=== PATIENT | male | born 1940 | race Two or more races ===

== ENCOUNTER 2024-08-14 18:39 | Emergency (ER) | payer OTHER ==
[~2024-08-14] VITALS: Ht 162.6 cm; Wt 81.6 kg
[~2024-08-14 18:39] MED LIST: DUI500 PO; ELIQUIS2.5 MG PO; PERCOCET 5-3251 EACH PO
[2024-08-14] MEDS ORDERED: IRBESARTAN75 MG PO (18:57)
[2024-08-14 19:54] LABS: BASO % 0.6 % (0.1-1.2); EOS # 0.61 (0.04-0.54); HEMATOCRIT 32.1 % (40.1-51.0); HEMOGLOBIN 10.5 g/dL (13.7-17.5); LYMPH # 0.96 (1.18-3.74); MEAN CORPUSCULAR HEMOGLOBIN 31.9 pg (25.6-32.2); MONO # 0.79 (0.24-0.82); NEUT # 6.29 (1.56-6.13); NEUT % 72.1 % (34.0-71.1); PLATELET COUNT 201 K/uL (163-369); RED BLOOD COUNT 3.29 M/uL (4.63-6.08); RED CELL DISTRIBUTION WIDTH 13.1 % (11.6-14.4)
[2024-08-14 20:11] LABS: INR 1.02; PARTIAL THROMBOPLASTIN TIME 29.6 SECONDS (22.0-34.0); PROTHROMBIN TIME 11.1 SECONDS (9.0-11.5)
[2024-08-14 20:16] LABS: ALBUMIN 2.2 gm/dL (3.4-5.0); BILIRUBIN TOTAL 0.87 mg/dL (0.3-1.2); CALCIUM 8.4 mg/dL (8.5-10.1); CREATININE SERUM 0.71 mg/dL (0.70-1.30); GFR 106.48; GLOBULINA 3.8 G/DL (2.4-3.5); POTASSIUM 3.78 mEq/L (3.5-5.1)
[2024-08-14] MEDS ORDERED: LEVALBUTEROL HCL 0.63 MG/3 ML SOLUTION IH ONE (21:12)
[2024-08-14] MEDS ORDERED: FUROsemide 20 MG/2 ML VIAL IV ONE (21:15)
[2024-08-14] MEDS ORDERED: LEVALBUTEROL HCL 1.25 MG/3 ML SOLUTION IH ONE (21:15)
[2024-08-14] MEDS ORDERED: FUROsemide 20 MG/2 ML VIAL ONE (21:33)
[2024-08-14 22:21] LABS: ABG PH 7.483 (7.35-7.45); ABG pCO2 32.6 mmHg (35-45)
[2024-08-14 22:22] LABS: BASE EXCESS 1.2 mmol/l; BICARBONATE 23.9 mmol/l (23-25); SaO2 95.7 %; Tco2 24.9 mmol/l; allen test SATISFACTORY; mode ROOM AIR; o2 21 %; puncture site BRADIAL RIGHT
== END 2024-08-14 22:46 | disposition home or self-care (01) ==
LOC: ER 18:39
PROVIDERS: General Practice
DX: R06.3 Periodic breathing (principal); I10 Essential (primary) hypertension
CPT/HCPCS: 36415; 71045; 82803; 94640; 96365; 99283; J3490

== ENCOUNTER 2024-09-08 13:50 | Inpatient (IN) | payer OTHER ==
[~2024-09-08] VITALS: Ht 167.6 cm; Wt 86.2 kg
[~2024-09-08 13:50] MED LIST changes: +IRBESARTAN75 MG PO
[2024-09-08] MEDS ORDERED: PANTOPRAZOLE SODIUM 40 MG/VIAL VIAL IV ONE ×2 (14:45→23:00)
[2024-09-08] MEDS ORDERED: PIPERACILLIN/TAZOBACTAM SODIUM 3.375 GM VIAL IV ONE ×2 (14:45→15:25)
[2024-09-08] MEDS ORDERED: 0.9 % SODIUM CHLORIDE 1,000 ML IV ONE (14:45)
[2024-09-08] MEDS ORDERED: LIDOCAINE HCL VISCOUS 20MG/ML BLIST 15ML MM ONE (15:47)
[2024-09-08] MEDS ORDERED: BARIUM SULFATE 450 ML ORAL.SUSP PO ONE (16:01)
[2024-09-08 16:28] LABS: BASO % 0.5 % (0.1-1.2); EOS # 0.07 (0.04-0.54); EOS % 0.6 % (0.7-7.0); HEMATOCRIT 35.8 % (40.1-51.0); HEMOGLOBIN 11.5 g/dL (13.7-17.5); LYMPH # 1.03 (1.18-3.74); LYMPH % 9.3 % (19.3-53.1); MEAN CORPUSCULAR HEMOGLOBIN 30.9 pg (25.6-32.2); MONO # 1.01 (0.24-0.82); MONO % 9.1 % (4.7-12.5); NEUT # 8.84 (1.56-6.13); NEUT % 80.2 % (34.0-71.1); PLATELET COUNT 201 K/uL (163-369); RED BLOOD COUNT 3.72 M/uL (4.63-6.08); RED CELL DISTRIBUTION WIDTH 13.3 % (11.6-14.4)
[2024-09-08 16:49] LABS: INR 1.11
[2024-09-08 16:53] LABS: BILIRUBIN TOTAL 0.79 mg/dL (0.3-1.2); CALCIUM 8.9 mg/dL (8.5-10.1); CREATININE SERUM 1.68 mg/dL (0.70-1.30); GFR 39.41; GLOBULINA 3.9 G/DL (2.4-3.5); POTASSIUM 3.89 mEq/L (3.5-5.1); TOTAL PROTEIN 6.9 gm/dL (6.4-8.2)
[2024-09-08 20:19] LABS: URINE APPEARANCE Cloudy; URINE BILIRRUBIN Small (NEGATIVE); URINE BLOOD Negative; URINE COLOR Dark Yellow; URINE GLUCOSE Negative (NEGATIVE); URINE KETONE Trace (NEGATIVE); URINE LEUKOCYTE Negative; URINE NITRATE Negative; URINE PROTEIN Trace (NEGATIVE)
[2024-09-08 20:25] LABS: URINE BACTERIA 417.3 uL (0.0-1933); URINE CAST 2.35 uL (0.0-1.40); URINE EPITHELIAL CELLS 34.3 uL (0.0-38.8); URINE RBC 13.1 uL (0.0-20.8); URINE WBC 14.4 uL (0.0-23.2)
[2024-09-08] MEDS ORDERED: CEFTRIAXONE SODIUM 2,000 MG in 0.9 % SODIUM CHLORIDE 100 ML IV SCH (22:54)
[2024-09-08] MEDS ORDERED: ACETAMINOPHEN 500 MG GEL..CAP PO PRN (23:00)
[2024-09-08] MEDS ORDERED: 0.9 % SODIUM CHLORIDE 1,000 ML IV SCH (23:00)
[2024-09-08] MEDS ORDERED: ONDANSETRON HCL 4 MG in 0.9 % SODIUM CHLORIDE 50 ML IV PRN (23:00)
[2024-09-08] MEDS ORDERED: PANTOPRAZOLE SODIUM 80 MG in 0.9 % SODIUM CHLORIDE 100 ML IV SCH (23:00)
[2024-09-08] MEDS ORDERED: ENALAPRILAT DIHYDRATE 1.25 MG/ML VIAL IV PRN (23:15)
[2024-09-09] VITALS: BP 155/67; O2SAT 97
[2024-09-09] MEDS ORDERED: CEFTRIAXONE SODIUM 2,000 MG VIAL ONE (01:51)
[2024-09-09 06:02] LABS: EOS # 0.19 (0.04-0.54); EOS % 2.1 % (0.7-7.0); HEMATOCRIT 32.6 % (40.1-51.0); HEMOGLOBIN 10.6 g/dL (13.7-17.5); LYMPH # 1.21 (1.18-3.74); LYMPH % 13.4 % (19.3-53.1); MEAN CORPUSCULAR HEMOGLOBIN 31.4 pg (25.6-32.2); MONO # 0.74 (0.24-0.82); MONO % 8.2 % (4.7-12.5); NEUT # 6.77 (1.56-6.13); PLATELET COUNT 183 K/uL (163-369); RED BLOOD COUNT 3.38 M/uL (4.63-6.08); RED CELL DISTRIBUTION WIDTH 13.5 % (11.6-14.4)
[2024-09-09 06:34] LABS: CALCIUM 8.6 mg/dL (8.5-10.1); CREATININE SERUM 1.71 mg/dL (0.70-1.30); GFR 38.61; POTASSIUM 3.66 mEq/L (3.5-5.1)
[2024-09-09 07:14] VITALS: BP 143/83; O2SAT 98
[2024-09-09] MEDS ORDERED: SODIUM CL 0.9% 100 ML IV.SOLN IV ONE (08:47)
[2024-09-09 09:01] VITALS: BP 130/65; O2SAT 95
[2024-09-09 17:16] VITALS: BP 179/52; O2SAT 95
[2024-09-10 01:05] VITALS: BP 138/65; O2SAT 98
[2024-09-10 06:46] LABS: EOS # 0.54 (0.04-0.54); EOS % 7.7 % (0.7-7.0); HEMATOCRIT 31.4 % (40.1-51.0); LYMPH # 1.03 (1.18-3.74); LYMPH % 14.8 % (19.3-53.1); MEAN CORPUSCULAR HEMOGLOBIN 31.3 pg (25.6-32.2); MONO # 0.51 (0.24-0.82); MONO % 7.3 % (4.7-12.5); NEUT # 4.81 (1.56-6.13); NEUT % 69.1 % (34.0-71.1); RED BLOOD COUNT 3.19 M/uL (4.63-6.08); RED CELL DISTRIBUTION WIDTH 13.3 % (11.6-14.4)
[2024-09-10 07:19] LABS: ALBUMIN 2.6 gm/dL (3.4-5.0); BILIRUBIN TOTAL 0.76 mg/dL (0.3-1.2); CALCIUM 8.9 mg/dL (8.5-10.1); CREATININE SERUM 1.01 mg/dL (0.70-1.30); GFR 70.9; GLOBULINA 3.1 G/DL (2.4-3.5); POTASSIUM 4.47 mEq/L (3.5-5.1); TOTAL PROTEIN 5.7 gm/dL (6.4-8.2)
[2024-09-10 07:29] LABS: PLATELET COUNT 82 K/uL (163-369)
[2024-09-10 08:25] VITALS: BP 166/74; O2SAT 95
[2024-09-10] MEDS ORDERED: SODIUM CHLORIDE 0.45 % 1,000 ML IV SCH (11:15)
[2024-09-10 15:20] VITALS: BP 153/64
[2024-09-11] VITALS: BP 135/66; O2SAT 99
[2024-09-11] MEDS ORDERED: PANTOPRAZOLE SODIUM 40 MG TABLET.DR PO SCH (09:00)
[2024-09-11 09:52] VITALS: BP 170/62; O2SAT 98
[2024-09-11] MEDS ORDERED: fentaNYL CITRATE 50 MCG/ML AMPUL IV PUSH ONE (10:30)
[2024-09-11] MEDS ORDERED: DIPHENHYDRAMINE HCL 50 MG/ML VIAL 1ML IV NR (10:30)
[2024-09-11] MEDS ORDERED: MIDAZOLAM HCL 2 MG/2 ML VIAL IV ONE (10:30)
[2024-09-11 12:02] LABS: BASO % 1.2 % (0.1-1.2); EOS # 0.34 (0.04-0.54); EOS % 5.6 % (0.7-7.0); HEMATOCRIT 29.7 % (40.1-51.0); HEMOGLOBIN 9.5 g/dL (13.7-17.5); LYMPH % 11.6 % (19.3-53.1); MEAN CORPUSCULAR HEMOGLOBIN 31.6 pg (25.6-32.2); MONO # 0.33 (0.24-0.82); MONO % 5.5 % (4.7-12.5); NEUT # 4.57 (1.56-6.13); NEUT % 75.9 % (34.0-71.1); RED BLOOD COUNT 3.01 M/uL (4.63-6.08); RED CELL DISTRIBUTION WIDTH 12.9 % (11.6-14.4)
[2024-09-11 12:28] LABS: PLATELET COUNT 129 K/uL (163-369)
[2024-09-11 12:35] LABS: CALCIUM 8.7 mg/dL (8.5-10.1); CREATININE SERUM 0.86 mg/dL (0.70-1.30); GFR 85.35; POTASSIUM 4.23 mEq/L (3.5-5.1)
[2024-09-11 16:00] VITALS: BP 165/57; O2SAT 94
[2024-09-12 02:19] VITALS: BP 170/62; O2SAT 98
[2024-09-12 08:00] VITALS: BP 155/61; O2SAT 97
[2024-09-12 16:00] VITALS: BP 171/56; O2SAT 98
== END 2024-09-12 20:13 | disposition home or self-care (01) | DRG 378 ==
LOC: ER 13:50 → SEC-K 09-09 00:01 → SURH 09-09 00:01
PROVIDERS: General Practice; Internal Medicine; ADMIT Internal Medicine; ATTEND Internal Medicine
PROC: BW21YZZ Computerized Tomography (CT Scan) of Abdomen and Pelvis using Other Contrast (ICD-10-PCS; 2024-09-08)
PROC: BT43ZZZ Ultrasonography of Bilateral Kidneys (ICD-10-PCS; 2024-09-08)
PROC: 3E1G78Z Irrigation of Upper GI using Irrigating Substance, Via Natural or Artificial Opening (ICD-10-PCS; 2024-09-08)
PROC: 0DB68ZX Excision of Stomach, Via Natural or Artificial Opening Endoscopic, Diagnostic (ICD-10-PCS; principal; 2024-09-11)
PROC: 0DB78ZX Excision of Stomach, Pylorus, Via Natural or Artificial Opening Endoscopic, Diagnostic (ICD-10-PCS; 2024-09-11)
PROC: 0DB58ZX Excision of Esophagus, Via Natural or Artificial Opening Endoscopic, Diagnostic (ICD-10-PCS; 2024-09-11)
DX: K92.0 Hematemesis (principal); N17.9 Acute kidney failure, unspecified; K22.2 Esophageal obstruction; K44.9 Diaphragmatic hernia without obstruction or gangrene; K31.89 Other diseases of stomach and duodenum; K57.30 Diverticulosis of large intestine without perforation or abscess without bleeding; I12.9 Hypertensive chronic kidney disease with stage 1 through stage 4 chronic kidney disease, or unspecified chronic kidney disease; N18.9 Chronic kidney disease, unspecified